=== PATIENT | male | born 1965 | race Caucasian/White ===

== ENCOUNTER 2019-11-05 10:26 | Emergency (ER) | payer OTHER ==
[~2019-11-05] VITALS: Ht 185.4 cm; Wt 108.9 kg
== END 2019-11-05 12:01 | disposition home or self-care (01) ==
LOC: ER 10:26
DX: L02.33 Carbuncle of buttock (principal)

== ENCOUNTER 2019-11-23 09:45 | Emergency (ER) | payer OTHER ==
[~2019-11-23] VITALS: Ht 185.4 cm; Wt 107.5 kg
== END 2019-11-23 11:00 | disposition home or self-care (01) ==
LOC: ER 09:45
DX: L02.33 Carbuncle of buttock (principal)

== ENCOUNTER → 2021-11-10 | Outpatient (CLI) | payer OTHER | END | disposition home or self-care (01) | LOC: PPH VACUNA 08:00 | PROVIDERS: ATTEND Emergency Medicine Pediatric Emergency Medicine | DX: Z23 Encounter for immunization (principal) ==

== ENCOUNTER 2022-04-14 13:58 | Outpatient (CLI) | payer OTHER | END 2022-04-14 14:18 | disposition home or self-care (01) | LOC: PPH VACUNA 13:58 | PROVIDERS: ATTEND Emergency Medicine Pediatric Emergency Medicine | DX: Z23 Encounter for immunization (principal) ==

== ENCOUNTER 2024-08-28 08:50 | Emergency (ER) | payer OTHER ==
[~2024-08-28] VITALS: Ht 182.9 cm; Wt 106.6 kg
[2024-08-28] MEDS ORDERED: MEPERIDINE HCL/PF 50 MG/ML VIAL IM ONE (09:30)
[2024-08-28] MEDS ORDERED: KETOROLAC TROMETHAMINE 60 MG VIAL IM STA (09:37)
[2024-08-28 10:01] LABS: HEMATOCRIT 43.2 % (39.0-48.0); HEMOGLOBIN 15.2 g/dL (13-16.00); MEAN CELL VOLUME 86.5 fL (80.0-100.00); MEAN CORPUSCULAR HEMOGLOBIN 30.4 pg (27.00-32.0); MEAN CORPUSCULAR HGB CONC 35.1 g/dl (32.0-36.0); PLATELET COUNT 246 K/uL (150-450); RED BLOOD COUNT 4.99 M/uL (4.00-6.00); RED CELL DISTRIBUTION WIDTH 13.5 % (11.5-14.5)
[2024-08-28 10:46] LABS: CALCIUM 8.6 mg/dL (8.5-10.1); CREATININE SERUM 0.8 mg/dL (0.70-1.30); GFR 98.94; POTASSIUM 3.67 mEq/L (3.5-5.1)
[2024-08-28 12:12] LABS: PH,URINE 5.5 (5.0-8.0); URINE APPEARANCE Clear; URINE BILIRRUBIN Negative (NEGATIVE); URINE BLOOD Negative; URINE COLOR Yellow; URINE GLUCOSE Negative (NEGATIVE); URINE KETONE Negative (NEGATIVE); URINE LEUKOCYTE Negative; URINE NITRATE Negative; URINE PROTEIN Negative (NEGATIVE); URINE RBC 3.5 uL (0.0-20.8); URINE UROBILINOGEN 0.2 E.U./dl; URINE WBC 2.7 uL (0.0-23.2)
[2024-08-28 12:14] LABS: URINE BACTERIA 2.5 uL (0.0-1933); URINE EPITHELIAL CELLS 0.7 uL (0.0-38.8)
== END 2024-08-28 15:03 | disposition home or self-care (01) ==
LOC: ER 08:52
PROVIDERS: Emergency Medicine
DX: K57.30 Diverticulosis of large intestine without perforation or abscess without bleeding (principal); Z91.041 Radiographic dye allergy status

== ENCOUNTER 2025-03-03 11:52 | Emergency (ER) | payer OTHER ==
[~2025-03-03] VITALS: Ht 185.4 cm; Wt 108.9 kg
[2025-03-03 13:09] LABS: HEMOGLOBIN 16.5 g/dL (13-16.00); MEAN CELL VOLUME 87.2 fL (80.0-100.00); MEAN CORPUSCULAR HGB CONC 34.4 g/dl (32.0-36.0); PLATELET COUNT 296 K/uL (150-450); RED BLOOD COUNT 5.51 M/uL (4.00-6.00); RED CELL DISTRIBUTION WIDTH 13.3 % (11.5-14.5)
[2025-03-03 13:37] LABS: ALBUMIN 3.9 gm/dL (3.4-5.0); ALKALINE PHOSPHATASE 51 U/L (50-136); ALT/SGPT 34 U/L (12-78); ANION GAP 9 (10.0-20.0); AST/SGOT 18 U/L (15-37); BILIRUBIN TOTAL 0.41 mg/dL (0.3-1.2); BLOOD UREA NITROGEN 13 mg/dL (7-18); BUN CREA RATIO 14 (7.0-25.0); CALCIUM 9.1 mg/dL (8.5-10.1); CARBON DIOXIDE 29 mEq/L (21-32); CHLORIDE 104 mmol/L (98-107); CREATININE SERUM 0.92 mg/dL (0.70-1.30); GFR 83.92; GLOBULINA 3.7 G/DL (2.4-3.5); GLUCOSE FASTING 98 mg/dL (65-100); OSMOLALITY SERUM 276 MOSM/KG (275-295); POTASSIUM 4.33 mEq/L (3.5-5.1); SODIUM 138 mmol/L (136-145); TOTAL PROTEIN 7.6 gm/dL (6.4-8.2)
[2025-03-03 13:38] LABS: C-REACTIVE PROTEIN < 0.29 MG/DL (0.00-0.29)
[2025-03-03 14:02] LABS: ERYTHROCYTE SEDIMENTATION RATE 9 mm/hr
== END 2025-03-03 14:34 | disposition home or self-care (01) ==
LOC: ER 11:52
PROVIDERS: General Practice
DX: L02.91 Cutaneous abscess, unspecified (principal); Z91.041 Radiographic dye allergy status